=== PATIENT | male | born 1955 | race Hispanic/Latino ===

== ENCOUNTER → 2024-06-01 | Outpatient (CLI) | payer OTHER ==
[2024-06-01 21:54] VITALS: PULSE 52; RESP 14
[2024-06-01 22:23] VITALS: PULSE 58; RESP 14
[2024-06-01 22:33] VITALS: PULSE 55; RESP 16
[2024-06-01 23:00] VITALS: PULSE 57; RESP 12
[2024-06-01 23:30] VITALS: PULSE 57; RESP 12
[2024-06-02] VITALS (10 sets, daily range): PULSE 52–58; RESP 12–20
== END | disposition home or self-care (01) ==
LOC: SLP 20:20
PROVIDERS: ATTEND Family Medicine
DX: G47.33 Obstructive sleep apnea (adult) (pediatric) (principal); R40.0 Somnolence
CPT/HCPCS: 95810